=== PATIENT | female | born 1995 | race Caucasian/White ===

== ENCOUNTER 2018-01-13 16:22 | Emergency (ER) | payer OTHER ==
[~2018-01-13] VITALS: Ht 152.4 cm; Wt 50.0 kg
[2018-01-13 16:25] VITALS: BP 116/80
[2018-01-13] MEDS ORDERED: PRED5TAB PO (16:48)
[2018-01-13] MEDS ORDERED: TACR1CAP4 PO (16:48)
[2018-01-13] MEDS ORDERED: MYCO180T10 PO (16:48)
[2018-01-13] MEDS ORDERED: NORG1TAB6 PO (16:49)
[2018-01-13] MEDS ORDERED: BENZOCAINE AEROSOL SPRAY 20%, 60ML ONE (16:55)
[2018-01-13] MEDS ORDERED: AMOXICILLIN/CLAV 875-125MG TABLET PO STA (17:05)
[2018-01-13] MEDS ORDERED: AMOXICILLIN/CLAV 875-125MG TABLET ONE (17:14)
== END 2018-01-13 17:20 | disposition home or self-care (01) ==
LOC: ED 16:55
DX: J02.8 Acute pharyngitis due to other specified organisms (principal); B97.89 Other viral agents as the cause of diseases classified elsewhere; Z94.0 Kidney transplant status
CPT/HCPCS: 99283